=== PATIENT | male | born 1995 | race Two or more races ===

== ENCOUNTER 2018-05-28 21:18 | Emergency (ER) | payer MEDICAID, OTHER, SELFPAY ==
[~2018-05-28] VITALS: Ht 177.8 cm; Wt 84.9 kg
[2018-05-28 21:20] VITALS: BP 138/63
== END 2018-05-28 23:13 | disposition home or self-care (01) ==
LOC: ED 21:50
DX: S83.92XA Sprain of unspecified site of left knee, initial encounter (principal); S50.311A Abrasion of right elbow, initial encounter; S50.811A Abrasion of right forearm, initial encounter; V99.XXXA Unspecified transport accident, initial encounter; Y93.89 Activity, other specified; Y99.8 Other external cause status; Y92.89 Other specified places as the place of occurrence of the external cause
CPT/HCPCS: 29505; 99284